=== PATIENT | male | born 1980 | race Hispanic/Latino ===

== ENCOUNTER 2024-12-14 00:35 | Emergency (ER) | payer OTHER ==
[~2024-12-14] VITALS: Ht 175.3 cm; Wt 129.3 kg
[~2024-12-14 00:35] MED LIST: ACET-2079 PO; DICL20GE TP; LIDO1ADH71 TP; MELO-108 PO; ORPH100 PO
[2024-12-14 00:37] VITALS: BP 149/82; PULSE 95; RESP 18; TEMP 99.1; O2SAT 98
--- NOTE | 2024-12-14 01:13 | ERN ---
ED Note History of Present Illness Stated Complaint: LEFT HAND LACERATION Chief Complaint: Laceration/Avulsion Time Seen by MD: 00:39 Dictation: PATIENT IS A 44-YEAR-OLD MALE WITH A LEFT PALMAR LACERATION WITH THE CUT ON A BROKEN GLASS AT HOME. HE STATES THE GLASS WAS GOING TO FALL ANY ATTEMPTED TO GRAB IT NOT REALIZED IN THE END OF IT WAS BROKEN. NO ACTIVE BLEEDING AT THE PRESENT TIME. PATIENT IS A DIABETIC. ADDITIONALLY STATES HIS TETANUS SHOT WAS WITHIN LAST FIVE YEARS. NEUROVASCULAR CMS INTACT. Allergies: Coded Allergies: No Known Drug Allergies (Unverified Allergy, Unknown, 03/21/24) Home Meds Active Scripts Acetaminophen with Codeine (Acetaminophen-Cod #3 Tablet) 300 Mg-30 Mg Tablet, 1 EACH PO QID for pain, #20 TAB Prov:VENICE DIAZ DO 03/21/24 Lidocaine (Lidocaine Pain Relief) 4 % Adh..patch, 1 EACH TP BID PRN for PAIN for 10 Days, #10 ADH.PATCH Prov:VENICE DIAZ DO 03/21/24 Diclofenac Sodium (Voltaren Arthritis Pain) 1 % Gel..gram., 20 GM TP QID, #1 TUBE Prov:VENICE DIAZ DO 03/21/24 Orphenadrine Citrate (Norflex) 100 Mg Srtab, 100 MG PO BID for back spasm, #20 TAB.SR Prov:VENICE DIAZ DO 03/21/24 Meloxicam (Meloxicam) 15 Mg Tablet, 15 MG PO DAILY PRN for PAIN for 10 Days, #10 TAB Prov:VENICE DIAZ DO 03/21/24 Past Medical History Past Medical History: Diabetes-Type II, Hypertension Surgical History: Other Surgical History Other: right 5th toe amputation RN Note Reviewed/Agreed w/PFSH: Yes Review of System Dictation CONSTITUTIONAL: NEGATIVE EXCEPT FOR HPI HEAD/FACE: NEGATIVE EXCEPT FOR HPI EENT: NEGATIVE EXCEPT FOR HPI RESPIRATORY: NEGATIVE EXCEPT FOR HPI GASTROINTESTINAL/ABDOMINAL: NEGATIVE EXCEPT FOR HPI GENITOURINARY: NEGATIVE EXCEPT FOR HPI MUSCULOSKELETAL: NEGATIVE EXCEPT FOR HPI INTEGUMENTARY: NEGATIVE EXCEPT FOR HPI LEFT PALMAR LACERATION NEUROLOGICAL/PSYCH: NEGATIVE EXCEPT FOR HPI HEMATOLOGIC/LYMPHATIC: NEGATIVE EXCEPT FOR HPI ALL SYSTEMS NEGATIVE, EXCEPT NOTED ABOVE. 13 POINT REVIEW OF SYSTEMS ASSESSED AND ALL NEGATIVE EXCEPT FOR ABOVE. Initial Vital Sign VS Vital Signs Date Time Temp Pulse Resp B/P (MAP) Pulse Ox O2 Delivery O2 Flow Rate FiO2 2/15/25 00:37 99.1 95 18 149/82 98 Room Air* 0 21 Physical Exam Dictation VITAL SIGNS REVIEWED GENERAL APPEARANCE: ALERT, ORIENTED X 3, MILD ACUTE DISTRESS, WELL DEVELOPED, NOURISHED. OBESE HEAD AND FACE: NON-TRAUMATIC. EYES: PERRL, PINK CONJUNCTIVAS, EYELID NO TRAUMA, ANTERIOR CHAMBER WITH ARCUS SENILIS. EARS: PINNAS INTACT AND NO SIGNS OF TRAUMA OR ERYTHEMA EAR CANALS CLEAR AND NO DISCHARGE TM NO ERYTHEMA NOSE: NO DISCHARGE, NO BLEEDING. OROPHARYNX: MOUTH NORMAL, TONGUE PINK, PHARYNX CLEAR,NO ERYTHEMA, TONSILS NO EXUDATES, NO ABSCESSES NOTED, MUCOUS MEMBRANE MOIST NECK: SUPPLE, NON-TENDER, NO THYROMEGALY, NO MASSES, NO JVD, NO BRUITS BREAST:DEFERRED CHEST:NO TENDERNESS, NO CREPITUS, NO PARADOXICAL MOVEMENT, NO RETRACTIONS LUNGS:CLEAR, WELL-VENTILATED, SYMMETRIC, NO RALES, NO WHEEZING, NO RHONCHI, NO STRIDOR, GOOD BREATH SOUNDS BILATERALLY HEART: REGULAR RATE, REGULAR RHYTHM, NO MURMUR, NO GALLOPS VASCULAR: NO PERIPHERAL EDEMA, ABDOMEN: SOFT, POSITIVE BOWEL SOUNDS, NONDISTENDED, NO GUARDING, NONTENDER, NO REBOUND, NO MASSES NO HEPATOMEGALY, NO SPLENOMEGALY, NO HOUSTON'S SIGN, NO HERNIAS. RECTAL: DEFERRED GENITAL: DEFERRED NEUROLOGICAL: NORMAL SPEECH, MOTOR FUNCTION INTACT, SENSORY FUNCTION INTACT MUSCULOSKELETAL: NECK NONTENDER, FULL RANGE OF MOTION, BACK NONTENDER, FULL RANGE OF MOTION, EXTREMITIES: NONTENDER, FULL RANGE OF MOTION SKIN: COLOR PINK, D 3 CM LACERATION TO PALMAR THENAR LEFT THUMB FULL RANGE OF MOTION TO THUMB NO LAXITY LYMPHATIC: DEFERRED Results (Laboratory/Radiology) Laboratory/Radiology 0115/LEFT HAND X-RAY DEMONSTRATES NO RADIOPAQUE FOREIGN BODY Labs Reviewed?: Yes ED Course ED Course Orders Procedure Category Date Status Time Hand 3+Vws Lt RAD 12/14/24 Taken 00:47 Ibuprofen 800 Mg Tab PHA 12/14/24 In Process (Motrin) 01:30 Cephalexin 500 Mg PHA 12/14/24 In Process Capsule (Keflex 500 Mg 01:30 Neomy PHA 12/14/24 In Process Sulf/Bacitra/Polymyxin 01:30 Lidocaine Hcl 1% 20ml PHA 12/14/24 In Process Vial (Lidocaine Hc 01:30 Current Medications Medications (Trade) Dose Ordered Sig/Patricia Route PRN Reason Start Time Stop Time Status Last Admin Dose Admin Cephalexin (Keflex 500 MG CAPS) 1,000 mg ONCE ONCE PO 12/14/24 01:30 12/14/24 01:31 Ibuprofen (moTRIN) 800 mg ONCE ONCE PO 12/14/24 01:30 12/14/24 01:31 Lidocaine HCl (Lidocaine HCl 1% 20ml Vial) 10 ml ONCE INJ 12/14/24 01:30 01/13/25 01:29 Neomycin/ Polymyxin/ Bacitracin (Triple Antibiotic Ointment) 1 appl ONCE ONCE TP 12/14/24 01:30 12/14/24 01:31 Vital Signs Date Time Temp Pulse Resp B/P (MAP) Pulse Ox O2 Delivery O2 Flow Rate FiO2 12/14/24 00:37 99.1 95 18 149/82 98 Room Air 0 12/14/24 00:37 99.1 95 18 149/82 98 Room Air* 0 21 0130/MEDICAL DECISION-MAKING BASED ON X-RAY TO RULE OUT RETAINED FOREIGN BODY AND WOUND CLOSURE. PATIENT STATES IT TETANUS SHOT IS UP TO DATE HE HAS A DIABETIC AND INITIATED KEFLEX PROPHYLACTICALLY Medical Decision Making MDM MEDICAL DECISION-MAKING BASED ON X-RAY TO RULE OUT FOREIGN BODY X-RAY NEGATIVE LACERATION WAS CLOSED KEFLEX INITIATED PROPHYLACTICALLY DUE TO PATIENT HAS A DIABETIC MALE WOUND CARE INSTRUCTIONS GIVEN Procedure Procedure Dictation: 0120/PROCEDURE EXPLAINED TO PATIENT HE AGREED TO PROCEED 3 CM LACERATION TO PALMAR THENAR LEFT THUMB CLEANED WITH WOUND CLEANSER 3 ML LIDOCAINE 1% PLAIN FOR LOCAL ANESTHETIC CLOSED WITH FOUR 4-0 PROLENE SIMPLE INTERRUPTED SUTURES SINGLE-LAYER CLOSURE PATIENT TOLERATED WELL NEUROVASCULAR CMS INTACT TO FINGER POST REPAIR DX & DISP Disposition: Discharge Departure Impression: Primary Impression: Laceration of superficial palmar arch of left hand Condition: Stable Scripts Cephalexin (Cephalexin) 500 Mg Tablet 1 TAB PO TID for 7 Days, #21 TAB 0 Refills Prov: MARLY JOHNSON NP 12/14/24 Mupirocin (Bactroban 2% Oint) 2 % Oint 1 APPL TP TID for 5 Days, #15 GM 0 Refills apply to affected area(s) Prov: MARLY JOHNSON TALENT ACQUISITION LEAD 12/14/24 Additional Instructions: FOLLOW-UP WITH PRIMARY CARE PROVIDER IN 1 TO 2 DAYS. TAKE MEDICATIONS DIRECTED HERE IN THE EMERGENCY ROOM. OKAY TO CONTINUE HOME MEDICATIONS UNLESS OTHERWISE DISCUSSED DURING YOUR VISIT IN THE EMERGENCY ROOM TODAY. RETURN TO YOUR NEAREST EMERGENCY ROOM IF SYMPTOMS WORSEN OR IF THERE IS NO IMPROVEMENT. CALL 911 IF YOU NEED IMMEDIATE ASSISTANCE. TAKE TYLENOL OR MOTRIN [id number] NEEDED AND IF NO CONTRAINDICATIONS ARE PRESENT. INCREASE ORAL HYDRATION. A WOUND CULTURE OR URINE CULTURE WAS ORDERED HERE IN THE EMERGENCY ROOM DEPARTMENT PLEASE FOLLOW-UP WITH PRIMARY CARE PROVIDER AND ADVISE THEM TO GET REPEAT PORTS FROM OUR FACILITY. IF YOU HAD ANY ARINA WRAP/SPLINTS THAT WERE APPLIED HERE, PLEASE DO NOT REMOVE THEM UNTIL YOU SEE YOUR PRIMARY CARE OR SPECIALTY. KEEP LACERATION REPAIR CLEAN AND DRY. APPLY BACTROBAN OINTMENT WITH DRESSING 3 TIMES A DAY FOR FIVE DAYS. TAKE ANTIBIOTICS DIRECTED UNTIL GONE. SUTURES OUT IN 10 DAYS Referrals: BRIGETTE PITT MD (PCP) Time of Disposition: 01:30 I have reviewed the case, and I agree with, Diagnosis and Plan MARLY JOHNSON NP Dec 14, 2024 01:13
[2024-12-14] MEDS: ibuPROFEN 800 MG TAB PO ONE (01:18)
[2024-12-14] MEDS: NEOMY SULF/BACITRA/POLYMYXIN B 1 EACH PACKET TP ONE (01:18)
[2024-12-14] MEDS: cePHALexin 500 MG CAPSULE PO ONE (01:18)
[2024-12-14] MEDS: LIDOCAINE HCL 1% 20 ML VIAL INJ SCH (01:21)
[2024-12-14] MEDS ORDERED: CEPH500T PO (01:31)
[2024-12-14] MEDS ORDERED: MUPI22O TP (01:31)
--- NOTE | 2024-12-14 01:50 | NUR ---
NEOSPORIN APPLIED TO LEFT LACERATION WOUND. NON-ADHERENT PAD AND KERLEX APPLIED TO SUTURED LEFT HAND.
--- NOTE | 2024-12-14 08:45 | HMCIMG ---
Exam Type: HAND 3+VWS LT Clinical Information: palm laceration with possible foreign body Comparison: None Findings: The bone examination is unremarkable. No fractures or dislocations are seen. No radiopaque foreign bodies are noted. Soft tissues are preserved. IMPRESSION: Normal examination.
== END 2024-12-14 01:53 | disposition home or self-care (01) ==
LOC: EDH 00:35
DX: S65.212A Laceration of superficial palmar arch of left hand, initial encounter (principal); E11.9 Type 2 diabetes mellitus without complications; I10 Essential (primary) hypertension; W25.XXXA Contact with sharp glass, initial encounter; Y93.89 Activity, other specified; Y92.89 Other specified places as the place of occurrence of the external cause; Y99.8 Other external cause status
CPT/HCPCS: 12002; 73130; 99284

== ENCOUNTER 2025-02-09 04:14 | Emergency (ER) | payer OTHER ==
[~2025-02-09] VITALS: Ht 175.3 cm; Wt 128.8 kg
[~2025-02-09 04:14] MED LIST changes: +CEPH500T PO; +MUPI22O TP
--- NOTE | 2025-02-09 04:34 | ERN ---
General Chief Complaint: Nosebleed Stated Complaint: NOSE BLEED Time Seen by MD: 04:27 Source: patient History of Present Illness Initial Comments 44-year-old male with a history of nosebleeds had one start tonight. He could not stop the bleeding despite pressure with his fingers on his nose. He could feel bleeding dribbling into the back of his throat during this time so he comes to the ED. the ED staff put a clamp on his nose and he feels like it is no longer bleeding and he no longer feels blood dripping down into the back of his throat. We removed the nasal clamp and the patient nose started bleeding again after [address] a rhino rocket. Allergies: Coded Allergies: No Known Drug Allergies (Unverified Allergy, Unknown, 03/21/24) Home Meds Active Scripts Cephalexin (Cephalexin) 500 Mg Tablet, 1 TAB PO TID for 7 Days, #21 TAB 0 Refills Prov:MARLY JOHNSON TYRE BUILDER 12/14/24 Mupirocin (Bactroban 2% Oint) 2 % Oint, 1 APPL TP TID for 5 Days, #15 GM 0 Refills apply to affected area(s) Prov:MARLY JOHNSON TYRE BUILDER 12/14/24 Acetaminophen with Codeine (Acetaminophen-Cod #3 Tablet) 300 Mg-30 Mg Tablet, 1 EACH PO QID for pain, #20 TAB Prov:VENICE DIAZ DO 03/21/24 Lidocaine (Lidocaine Pain Relief) 4 % Adh..patch, 1 EACH TP BID PRN for PAIN for 10 Days, #10 ADH.PATCH Prov:VENICE DIAZ DO 03/21/24 Diclofenac Sodium (Voltaren Arthritis Pain) 1 % Gel..gram., 20 GM TP QID, #1 TUBE Prov:VENICE DIAZ DO 03/21/24 Orphenadrine Citrate (Norflex) 100 Mg Srtab, 100 MG PO BID for back spasm, #20 TAB.SR Prov:VENICE DIAZ DO 03/21/24 Meloxicam (Meloxicam) 15 Mg Tablet, 15 MG PO DAILY PRN for PAIN for 10 Days, #10 TAB Prov:VENICE DIAZ DO 03/21/24 Past Medical History Past Medical History: Diabetes-Type II, Hypertension Past Surgical History: Other Surgical History Other: right 5th toe amputation ROS Dictation Review of systems is negative except for the nosebleed. Results Laboratory and Microbiology Labs Reviewed?: Yes MDM MDM: Differential diagnosis: Epistaxis, anterior epistaxis, posterior epistaxis, rhinorrhea, Rationale: Tests considered and ordered secondary to shared decision making include: Previous outside records reviewed: Old ER visits. Patient is a 44-year-old male coming in to be evaluated for left-sided epistaxis. Rhino rocket was placed epistaxis subsided. Before placed in the rhino rocket was covered in triple antibiotic cream Afrin was applied for smooth muscle dilation. Patient will be discharged in stable condition with a diagnosis of epistaxis. ED Course Orders Procedure Category Date Status Time Oxymetazolone Hcl PHA 02/09/25 Complete [place] (Afrin) 08:00 Neomy PHA 02/09/25 Complete Sulf/Bacitra/Polymyxin 08:00 Ketorolac PHA 02/09/25 Complete Tromethamine 30mg/Ml 08:34 Current Medications Medications (Trade) Dose Ordered Sig/Patricia Route PRN Reason Start Time Stop Time Status Last Admin Dose Admin Ketorolac Tromethamine (toRADol) 30 mg STK-MED ONCE .ROUTE 02/09/25 08:34 02/09/25 08:34 DC Neomycin/ Polymyxin/ Bacitracin (Triple Antibiotic Ointment) 1 appl ONCE ONCE TP 02/09/25 08:00 02/09/25 08:03 DC 02/09/25 08:31 Oxymetazoline HCl (AFrin) 2 sprays ONCE STAT EN 02/09/25 08:00 02/09/25 08:03 DC 02/09/25 08:31 Vital Signs Date Time Temp Pulse Resp B/P (MAP) Pulse Ox O2 Delivery O2 Flow Rate FiO2 02/09/25 04:49 97.9 88 18 142/79 97 Room Air* 0 21 02/09/25 04:15 97.2 88 16 154/86 98 Room Air Procedure Dictation Left nares epistaxis- using a 7.5 rhino rocket covered in triple antibiotic cream it was slowly introduce in the left [place] epistaxis subsided. Patient will be discharged in stable condition with a diagnosis epistaxis DX & DISP Disposition: Discharge Departure Impression: Primary Impression: Left-sided epistaxis Condition: Stable Additional Instructions: FOLLOW-UP WITH PRIMARY CARE PROVIDER IN 1 TO 2 DAYS. TAKE MEDICATIONS DIRECTED HERE IN THE EMERGENCY ROOM. OKAY TO CONTINUE HOME MEDICATIONS UNLESS OTHERWISE DISCUSSED DURING YOUR VISIT IN THE EMERGENCY ROOM TODAY. RETURN TO YOUR NEAREST EMERGENCY ROOM IF SYMPTOMS WORSEN OR IF THERE IS NO IMPROVEMENT. CALL 911 IF YOU NEED IMMEDIATE ASSISTANCE. TAKE TYLENOL [id number] NEEDED AND IF NO CONTRAINDICATIONS ARE PRESENT. INCREASE ORAL HYDRATION. A WOUND CULTURE OR URINE CULTURE WAS ORDERED HERE IN THE EMERGENCY ROOM DEPARTMENT PLEASE FOLLOW-UP WITH PRIMARY CARE PROVIDER AND ADVISE THEM TO GET REPEAT PORTS FROM OUR FACILITY. IF YOU HAD ANY ARINA WRAP/SPLINTS THAT WERE APPLIED HERE, PLEASE DO NOT REMOVE THEM UNTIL YOU SEE YOUR PRIMARY CARE OR SPECIALTY. Referrals: Referrals: BRIGETTE PITT MD (PCP) ROBBIE MOJICA MD Time of Disposition: 08:44 RUBIO ORTIZ MD Feb 09, 2025 04:34 EMIL COOMBS MD Feb 09, 2025 08:44
--- NOTE | 2025-02-09 05:14 | NUR ---
patient developed nosebleed again, ed md made aware
--- NOTE | 2025-02-09 05:18 | NUR ---
rapid rhino inserted to left nare as ordered
[2025-02-09 08:30] VITALS: BP 140/70; PULSE 80; RESP 16; TEMP 98.3; O2SAT 98
[2025-02-09] MEDS ORDERED: ketOROlac 30MG VIAL (30MG/ML) IM ONE (08:30)
[2025-02-09] MEDS: OXYmetazolone HCL SPRAY 15 ML BOTTLE EN STA (08:31)
[2025-02-09] MEDS: NEOMY SULF/BACITRA/POLYMYXIN B 1 EACH PACKET TP ONE (08:31)
[2025-02-09] MEDS: ketOROlac 30MG VIAL (30MG/ML) ONE (08:47)
== END 2025-02-09 09:03 | disposition home or self-care (01) ==
LOC: EDH 04:14
DX: R04.0 Epistaxis (principal); E11.9 Type 2 diabetes mellitus without complications; I10 Essential (primary) hypertension
CPT/HCPCS: 30901; 30905; 99284; J1885

== ENCOUNTER 2025-02-12 18:04 | Emergency (ER) | payer OTHER ==
[~2025-02-12] VITALS: Ht 175.3 cm; Wt 128.8 kg
--- NOTE | 2025-02-12 18:53 | NUR ---
CLIP APPLIED TO NOSE PER CLYDE HUTTON. PT TOLERATED WELL
[2025-02-12] MEDS: OXYmetazolone HCL SPRAY 15 ML BOTTLE EN ONE (19:35)
[2025-02-12 19:53] LABS: BASOPHILS # (AUTO) 0.04 K/uL (0.00-0.20); BASOPHILS % (AUTO) 0.3 % (0.0-5.0); EOSINOPHILS # (AUTO) 0.06 K/uL (0.00-0.70); EOSINOPHILS % (AUTO) 0.4 % (0.0-8.0); IMMATURE GRANULOCYTE ABSOLUTE 0.05 K/uL (0-1); LYMPHOCYTES # (AUTO) 1.9 K/uL (1.0-4.8); LYMPHOCYTES % (AUTO) 13.5 % (21.0-51.0); MEAN CORPUSCULAR HEMOGLOBIN 27.2 pg (27.0-33.0); MEAN CORPUSCULAR HGB CONC 32.6 g/dL (32.0-36.0); MEAN CORPUSCULAR VOLUME 83.5 fL (79-99); NEUTROPHILS # (AUTO) 10.8 K/uL (1.8-7.7); NEUTROPHILS % (AUTO) 78.4 % (40.0-77.0); PLATELET COUNT (AUTO) 216 K/uL (130-400); RED BLOOD CELL COUNT(AUTO) 4.67 MIL/uL (4.50-6.20); RED CELL DISTRIBUTION WIDTH 14.2 % (11.0-15.5); WHITE BLOOD COUNT (AUTO) 13.8 K/uL (4.8-10.8)
[2025-02-12 20:02] LABS: PROTHROMBIN TIME 10.6 SEC (9.6-11.6)
--- NOTE | 2025-02-12 21:24 | ERN ---
ED Note History of Present Illness Stated Complaint: RHINO ROCKET REMOVED Chief Complaint: Other Problems Time Seen by MD: 18:08 Time Seen by Midlevel: 18:08 Dictation: The patient is a 44-year-old male with history of hypertension, diabetes who presents to the emergency department for evaluation of rhino rocket removal. Patient reports he started with nosebleeds on Monday and had a rhino rocket inserted Monday morning and is here to remove it. Patient denies any complications with a rhino rocket. Denies any posterior blood. Allergies: Coded Allergies: No Known Drug Allergies (Unverified Allergy, Unknown, 03/21/24) Home Meds Active Scripts Cephalexin (Cephalexin) 500 Mg Tablet, 1 TAB PO TID for 7 Days, #21 TAB 0 Refills Prov:MARLY JOHNSON ADVISOR CONSULTANT 12/14/24 Mupirocin (Bactroban 2% Oint) 2 % Oint, 1 APPL TP TID for 5 Days, #15 GM 0 Refills apply to affected area(s) Prov:MARLY JOHNSON NP 12/14/24 Acetaminophen with Codeine (Acetaminophen-Cod #3 Tablet) 300 Mg-30 Mg Tablet, 1 EACH PO QID for pain, #20 TAB Prov:VENICE DIAZ DO 03/21/24 Lidocaine (Lidocaine Pain Relief) 4 % Adh..patch, 1 EACH TP BID PRN for PAIN for 10 Days, #10 ADH.PATCH Prov:VENICE IDAZ DO 03/21/24 Diclofenac Sodium (Voltaren Arthritis Pain) 1 % Gel..gram., 20 GM TP QID, #1 T UBE Prov:VENICE DIAZ DO 03/21/24 Orphenadrine Citrate (Norflex) 100 Mg Srtab, 100 MG PO BID for back spasm, #20 TAB.SR Prov:VENICE DIAZ DO 03/21/24 Meloxicam (Meloxicam) 15 Mg Tablet, 15 MG PO DAILY PRN for PAIN for 10 Days, #10 TAB Prov:VENICE DIAZ DO 03/21/24 Past Medical History Past Medical History: Diabetes-Type II, Hypertension Surgical History: Other Surgical History Other: right 5th toe amputation RN Note Reviewed/Agreed w/PFSH: Yes Review of System Dictation Constitutional: Negative for fever,chills, and weight loss Eyes: Negative for injury, pain,redness, and discharge ENT: Negative for injury,pain or swelling positive for nosebleed Cardiovascular: Negative for chest pain, palpitations, and edema Respiratory: Negative for shortness of breath, cough, and wheezing, Abdomen/GI: Negative for abdominal pain, nausea, vomiting, diarrhea, and constipation Back: Negative for injury and pain : Negative for injury, bleeding and discharge MS/Extremity: Negative for injury and deformity Skin: Negative for rash, and discoloration Neuro: Negative for headache, weakness, numbness, tingling, and seizure Psych: Negative for suicide ideation, homicidal ideation, and hallucinations Initial Vital Sign VS Vital Signs Date Time Temp Pulse Resp B/P (MAP) Pulse Ox O2 Delivery O2 Flow Rate FiO2 02/12/25 18:07 98.1 95 20 136/86 99 Room Air 02/12/25 18:25 0 21 Physical Exam Dictation Vital Signs reviewed General Appearance: Alert, oriented x 3, no acute distress, well developed, nourished. Head and Face: non-traumatic. Eyes: PERRL, pink conjunctivas, eyelid no trauma, anterior chamber with arcus senilis. Ears: Pinnas intact and no signs of trauma or erythema ear canals clear and no discharge TM no erythema Nose: No discharge, scant left nostril bleeding, no obvious wounds Oropharynx: Mouth normal, tongue pink. pharynx clear,no erythema, tonsils no exudates, no abscesses noted, mucous membrane moist Neck: Supple, non-tender, no thyromegaly, no masses, no JVD, no bruits Breast:Deferred Chest:No tenderness, no crepitus, no paradoxical movement, no retractions Lungs:Clear, well-ventilated, symmetric, no rales, no wheezing, no rhonchi, no stridor, good breath sounds bilaterally Heart: Regular rate, regular rhythm, no murmur, no gallops Vascular: no peripheral edema, Abdomen: Soft, positive bowel sounds, nondistended, no guarding, nontender, no rebound, no masses no hepatomegaly, no splenomegaly, no Schmitz's sign, no hernias. Rectal: Deferred Genital: Deferred Neurological: Normal speech, motor function intact, sensory function intact Musculoskeletal: Neck nontender, full range of motion, back nontender, full range of motion, Extremities: nontender, full range of motion Skin: Color pink, dry, no turgor, no rash, no lacerations, no abrasions, no contusions. Lymphatic: Deferred Results (Laboratory/Radiology) Laboratory/Radiology Laboratory Tests Test 02/12/25 19:45 White Blood Count 13.8 K/uL (4.8-10.8) H Red Blood Count 4.67 MIL/uL (4.50-6.20) Hemoglobin 12.7 g/dL (14.0-18.0) L Hematocrit 39.0 % (42-54) L Mean Corpuscular Volume 83.5 fL (79-99) Mean Corpuscular Hemoglobin 27.2 pg (27.0-33.0) Mean Corpuscular Hemoglobin Concent 32.6 g/dL (32.0-36.0) Red Cell Distribution Width 14.2 % (11.0-15.5) Platelet Count 216 K/uL (130-400) Mean Platelet Volume 10.7 fL (7.5-10.5) H Immature Granulocyte % (Auto) 0.4 % (0-1) Neutrophils (%) (Auto) 78.4 % (40.0-77.0) H Lymphocytes (%) (Auto) 13.5 % (21.0-51.0) L Monocytes (%) (Auto) 7.0 % (3.0-13.0) Eosinophils (%) (Auto) 0.4 % (0.0-8.0) Basophils (%) (Auto) 0.3 % (0.0-5.0) Neutrophils # (Auto) 10.8 K/uL (1.8-7.7) H Lymphocytes # (Auto) 1.9 K/uL (1.0-4.8) Monocytes # (Auto) 1.0 K/uL (0.1-1.0) Eosinophils # (Auto) 0.06 K/uL (0.00-0.70) Basophils # (Auto) 0.04 K/uL (0.00-0.20) Absolute Immature Granulocyte (auto 0.05 K/uL (0-1) Nucleated Red Blood Cells 0.0 % (0.0-0.19) Prothrombin Time 10.6 SEC (9.6-11.6) Prothromb Time International Ratio 1.00 (0.85-1.15) Activated Partial Thromboplast Time 29.0 SEC (26.3-35.5) Labs Reviewed?: Yes ED Course ED Course Orders Procedure Category Date Status Time Oxymetazolone Hcl PHA 02/12/25 Complete [place] (Afrin) 19:30 Cbc With Differential LAB 02/12/25 Complete 18:49 Pt And Ptt LAB 02/12/25 Complete 18:49 Current Medications Medications (Trade) Dose Ordered Sig/Patricia Route PRN Reason Start Time Stop Time Status Last Admin Dose Admin Oxymetazoline HCl (AFrin) 2 SPRAYS EN ONCE ONCE EN 02/12/25 19:30 02/12/25 19:31 DC 02/12/25 19:35 Vital Signs Date Time Temp Pulse Resp B/P (MAP) Pulse Ox O2 Delivery O2 Flow Rate FiO2 02/12/25 18:25 98.1 95 20 136/86 99 Room Air* 0 21 02/12/25 18:07 98.1 95 20 136/86 99 Room Air Medical Decision Making MDM The patient is a 44-year-old male with history of hypertension, diabetes who presents to the emergency department for evaluation of rhino rocket removal. Patient reports he started with nosebleeds on Monday and had a rhino rocket inserted Monday morning and is here to remove it. Patient denies any complications with a rhino rocket. Denies any posterior blood. CBC showed mild leukocytosis, mild normocytic anemia, normal platelets, normal coagulation. Patient's rhino rocket was removed and patient developed nosebleed again. Afrin was applied and pressure was applied which helped significantly. Patient's bleeding appears to be anteriorly. Patient with no posterior blood. Patient was observed in the ER for a few hours with minimal bleeding. Patient instructed to follow up with ENT and PCP. Differential diagnosis: Posterior nosebleed, anterior nosebleed, thrombocytopenia Need for hospitalization: Patient does not meet criteria for hospitalization. There are no social concerns with this patient. DX & DISP Disposition: Discharge Departure Impression: Primary Impression: Left-sided epistaxis Condition: Stable Additional Instructions: Please follow up with ENT in 1-2 days. If bleeding develops please apply pressure until it stops. If bleeding becomes in your please return to ER. FOLLOW-UP WITH PRIMARY CARE PROVIDER IN 1 TO 2 DAYS. TAKE MEDICATIONS DIRECTED HERE IN THE EMERGENCY ROOM. OKAY TO CONTINUE HOME MEDICATIONS UNLESS OTHERWISE DISCUSSED DURING YOUR VISIT IN THE EMERGENCY ROOM TODAY. RETURN TO YOUR NEAREST EMERGENCY ROOM IF SYMPTOMS WORSEN OR IF THERE IS NO IMPROVEMENT. CALL 911 IF YOU NEED IMMEDIATE ASSISTANCE. TAKE TYLENOL OR MOTRIN [id number] NEEDED AND IF NO CONTRAINDICATIONS ARE PRESENT. INCREASE ORAL HYDRATION. A WOUND CULTURE OR URINE CULTURE WAS ORDERED HERE IN THE EMERGENCY ROOM DEPARTMENT PLEASE FOLLOW-UP WITH PRIMARY CARE PROVIDER AND ADVISE THEM TO GET REPEAT PORTS FROM OUR FACILITY. IF YOU HAD ANY ARINA WRAP/SPLINTS THAT WERE APPLIED HERE, PLEASE DO NOT REMOVE THEM UNTIL YOU SEE YOUR PRIMARY CARE OR SPECIALTY. Referrals: ALLAN LEE MD (PCP) Time of Disposition: 21:23 I have reviewed the case, and I agree with, Diagnosis and Plan ANNI MOSES DECORATIVE CUTTING MACHINE TENDER Feb 12, 2025 21:24
[2025-02-12 21:48] VITALS: BP 128/80; PULSE 88; RESP 20; TEMP 98.1; O2SAT 99
== END 2025-02-12 21:49 | disposition home or self-care (01) ==
LOC: EDH 18:04
DX: R04.0 Epistaxis (principal); E11.9 Type 2 diabetes mellitus without complications; I10 Essential (primary) hypertension; Z79.899 Other long term (current) drug therapy; Z98.890 Other specified postprocedural states
CPT/HCPCS: 36415; 85025; 85610; 85730; 99283

== ENCOUNTER 2025-02-17 02:04 | Emergency (ER) | payer OTHER ==
[~2025-02-17] VITALS: Ht 175.3 cm; Wt 130.2 kg
--- NOTE | 2025-02-17 03:04 | NUR ---
PT CARE ASSUMED AT THIS TIME. PT PLACED IN ED 9.
[2025-02-17] MEDS ORDERED: METH8TAB6 PO (05:37)
--- NOTE | 2025-02-17 05:38 | ERN ---
General Chief Complaint: Back Pain-No Injury Stated Complaint: BACK RADIATING TO RT LEG Time Seen by MD: 04:22 Source: patient History of Present Illness Initial Comments Patient is a 44-year-old male with low back pain that radiates to the front causing leg pain on the right. Allergies: Coded Allergies: No Known Drug Allergies (Unverified Allergy, Unknown, 03/21/24) Home Meds Active Scripts Cephalexin (Cephalexin) 500 Mg Tablet, 1 TAB PO TID for 7 Days, #21 TAB 0 Refills Prov:MARLY JOHNSON FURNACE UTILITY OPERATOR 12/14/24 Mupirocin (Bactroban 2% Oint) 2 % Oint, 1 APPL TP TID for 5 Days, #15 GM 0 Refills apply to affected area(s) Prov:MARLY JOHNSON NP 12/14/24 Acetaminophen with Codeine (Acetaminophen-Cod #3 Tablet) 300 Mg-30 Mg Tablet, 1 EACH PO QID for pain, #20 TAB Prov:VENICE DIAZ DO 03/21/24 Lidocaine (Lidocaine Pain Relief) 4 % Adh..patch, 1 EACH TP BID PRN for PAIN for 10 Days, #10 ADH.PATCH Prov:VENICE DIAZ DO 03/21/24 Diclofenac Sodium (Voltaren Arthritis Pain) 1 % Gel..gram., 20 GM TP QID, #1 TUB E Prov:VENICE DIAZ DO 03/21/24 Orphenadrine Citrate (Norflex) 100 Mg Srtab, 100 MG PO BID for back spasm, #20 TAB.SR Prov:VENICE DIAZ DO 03/21/24 Meloxicam (Meloxicam) 15 Mg Tablet, 15 MG PO DAILY PRN for PAIN for 10 Days, #10 TAB Prov:VENICE DIAZ DO 03/21/24 Past Medical History Past Medical History: Diabetes-Type II, Hypertension Past Surgical History: Other Surgical History Other: right 5th toe amputation Constitutional: (-) chills, (-) diaphoresis, (-) fever, (-) malaise, (-) wea kness, (-) other documentation EENTM: (-) eye pain, (-) blurred vision, (-) tearing, (-) double vision, (-) ear pain, (-) ear discharge, (-) nose pain, (-) nose congestion, (-) throat pain, (-) Throat swelling, (-) mouth pain, (-) tooth pain, (-) mouth swelling, (-) other documentation Respiratory: (-) cough, (-) orthopnea, (-) short of breath, (-) stridor, (-) wheezing, (-) other documentation Cardiovascular: (-) chest pain, (-) edema, (-) palpitations, (-) syncope, (-) dyspnea on exertion, (-) other documentation Gastrointestinal/Abdominal: (-) nausea, (-) vomiting, (-) diarrhea, (-) abdominal pain, (-) abdominal distention, (-) constipation, (-) rectal bleeding, (-) dark stool/melena, (-) other documentation Skin: (-) laceration, (-) contusion, (-) abrasion, (-) abscess, (-) rash, (-) change in color, (-) change in hair, (-) change in nails, (-) diaphoresis, (-) dryness, (-) other documentation Neuro: (-) altered mental status, (-) headache, (-) syncope, (-) paralysis, (-) numbness, (-) seizure, (-) pre-existing deficit, (-) tremors, (-) weakness, (-) dizziness, (-) slurred speech, (-) vertigo, (-) other documentation Physical Exam General Appearance: (+) no apparent distress Head/Face Trauma: No Eye: bilateral eye normal inspection, bilateral eye PERRL, bilateral eye EOMI Ear, Nose, Throat: (+) hearing grossly normal, (+) normal ENT inspection Neck: (+) normal inspection, (+) supple Respiratory: (+) chest non-tender, (+) lungs clear Heart: (+) regular, (+) no gallop Vascular: (+) no edema, (+) normal peripheral pulse Gastrointestinal: (+) soft, (+) non-tender, (+) no organomegaly MDM I ordered a CT scan of the patient's lumbar spine it shows degenerative disc disease and facet joint arthropathy with multiple high-grade lumbar spinal steno sis and severe lumbar foraminal stenosis bilaterally. I discussed these findings with the patient and he said that he has been here before and was given a shot in the back and was on his way. I do not know where to inject or how to inject steroids into people's backs just yet. I will give him a prescription for steroids and discharge him home. He is agreeable to this plan. ED Course Orders Procedure Category Date Status Time Ct Lumbar Spine W/O CT 02/17/25 Taken Contrast 04:22 Vital Signs Date Time Temp Pulse Resp B/P (MAP) Pulse Ox O2 Delivery O2 Flow Rate FiO2 02/17/25 04:48 70 17 136/76 100 Room Air* 0 21 02/17/25 03:08 98.1 73 17 132/76 100 Room Air* 0 21 02/17/25 02:06 98.1 79 20 147/87 99 Room Air DX & DISP Disposition: Discharge Departure Impression: Primary Impression: Acute exacerbation of chronic low back pain Condition: Stable Scripts Methylprednisolone (Methylprednisolone) 8 Mg Tablet 1 TAB PO DAILY for 5 Days, #20 TAB 0 Refills Prov: RUBIO ORTIZ MD 02/17/25 Additional Instructions: Please return if your symptoms are so bad that you lose bowel or urine function or you find you are unable to walk. Referrals: ALLAN LEE MD (PCP) RUBIO ORTIZ MD Feb 17, 2025 05:37
[2025-02-17 05:50] VITALS: BP 136/75; PULSE 75; RESP 15; TEMP 98.1; O2SAT 100
--- NOTE | 2025-02-17 08:46 | HMCIMG ---
CT LUMBAR SPINE W/O CONTRAST HISTORY: Radiculopathy, low back pain COMPARISON: None TECHNIQUE: Multiple sequential axial images of the lumbar spine were obtained including post processing sagittal and coronal reconstruction images. Patient was not given contrast through intravenous route. FINDINGS: There are degenerative changes with lumbar spine spondylosis. Disc space narrowing are seen at L2-3 through L5-S1 levels. Central canal narrowing is seen at these levels. There is no loss of vertebral height. Evaluation for disc and cord pathology is limited with CT study. No evidence of fracture or dislocation is seen. IMPRESSION: 1. No fracture is seen. DJD with lumbar spine spondylosis. CT was performed with one or more following dose reduction techniques: automated exposure control, adjustment of the mA and kv according to patient's size, or use of a iterative reconstruction technique.
== END 2025-02-17 06:04 | disposition home or self-care (01) ==
LOC: EDH 02:04
DX: G89.29 Other chronic pain (principal); M54.50 Low back pain, unspecified; E11.9 Type 2 diabetes mellitus without complications; I10 Essential (primary) hypertension; Z79.899 Other long term (current) drug therapy; Z98.890 Other specified postprocedural states
CPT/HCPCS: 72131; 99284

== ENCOUNTER 2025-02-20 14:00 | Emergency (ER) | payer OTHER ==
[~2025-02-20] VITALS: Ht 175.3 cm; Wt 128.8 kg
[~2025-02-20 14:00] MED LIST changes: +METH8TAB6 PO
--- NOTE | 2025-02-20 14:25 | ERN ---
General Chief Complaint: Lower Extremity Pain/Injury Stated Complaint: RIGHT LEG PAIN Time Seen by MD: 14:02 Source: patient History of Present Illness Initial Comments Patient is a 44-year-old male coming in to be evaluated for right hip pain radiating down the leg. Patient states that he was told that he had some nerve damage on a previous visit. He states that the pain is usually more intense and today is not as painful as it usually is. Allergies: Coded Allergies: No Known Drug Allergies (Unverified Allergy, Unknown, 03/21/24) Home Meds Active Scripts Methylprednisolone (Methylprednisolone) 8 Mg Tablet, 1 TAB PO DAILY for 5 Days, #20 TAB 0 Refills Prov:RUBIO ORTIZ MD 02/17/25 Cephalexin (Cephalexin) 500 Mg Tablet, 1 TAB PO TID for 7 Days, #21 TAB 0 Refills Prov:MARLY JOHNSON NP 12/14/24 Mupirocin (Bactroban 2% Oint) 2 % Oint, 1 APPL TP TID for 5 Days, #15 GM 0 Refills apply to affected area(s) Prov:MARLY JOHNSON NP 12/14/24 Acetaminophen with Codeine (Acetaminophen-Cod #3 Tablet) 300 Mg-30 Mg Tablet, 1 EACH PO QID for pain, #20 TAB Prov:VENICE DIAZ DO 03/21/24 Lidocaine (Lidocaine Pain Relief) 4 % Adh..patch, 1 EACH TP BID PRN for PAIN for 10 Days, #10 ADH.PATCH Prov:VENICE DIAZ DO 03/21/24 Diclofenac Sodium (Voltaren Arthritis Pain) 1 % Gel..gram., 20 GM TP QID, #1 TUBE Prov:VENICE DIAZ DO 03/21/24 Orphenadrine Citrate (Norflex) 100 Mg Srtab, 100 MG PO BID for back spasm, #20 TAB.SR Prov:VENICE DIAZ DO 03/21/24 Meloxicam (Meloxicam) 15 Mg Tablet, 15 MG PO DAILY PRN for PAIN for 10 Days, #10 TAB Prov:VENICE DIAZ DO 03/21/24 Past Medical History Past Medical History: Diabetes-Type II, Hypertension Past Surgical History: Other Surgical History Other: right 5th toe amputation ROS Dictation CONSTITUTIONAL: No chills, no fever, no weakness, no diaphoresis, no malaise. HEAD/FACE: No signs of trauma. EENT: No eye pain, no blurred vision, no tearing, no double vision, no ear pain, no ear discharge, no nose pain, no nasal congestion, no throat pain, no throat swelling, no mouth pain. RESPIRATORY: No cough, no orthopnea, no SOB, no stridor, no wheezing. CARDIOVASCULAR: No chest pain, no edema, no palpitations, no syncope. GASTROINTESTINAL/ABDOMINAL: No abdominal pain, no constipation, no diarrhea, no nausea, no vomiting. GENITOURINARY: No abnormal discharge, no dysuria, no frequent urination, no hematuria. No complaints of pain in the genitals. MUSCULOSKELETAL: No back pain, no gout, no joint pain, no joint swelling,muscle pain, no muscle stiffness, no neck pain. INTEGUMENTARY: No change in color, no change in hair/nails, no dryness, no lesi on, no lumps, no rash. NEUROLOGICAL/PSYCH: No anxiety, not depressed, no emotional problem, no headache, no numbness, no pre-existing deficit, no history of seizures, no tremors, no weakness. HEMATOLOGIC/LYMPHATIC: Not anemic, no history of blood clots, no apparent bleeding, no bruising, glands not swollen. All Systems Negative, Except as Noted. Physical Exam Physical Exam Dictation VITAL SIGNS: Reviewed. GENERAL APPEARANCE: Alert, oriented x3, no acute distress, obese. HEAD AND FACE: Non-traumatic. EYES: PERRL, pink conjunctivas, eyelid no trauma, anterior chamber clear. EARS: Pinnas intact and no signs of trauma or erythema. Ear canals clear and no discharge. TMs no erythema. NOSE: No discharge, no bleeding. OROPHARYNX: Mouth normal, teeth no caries, tongue pink. Pharynx clear, no erythema. Tonsils no exudates, no abscesses noted. Mucous membrane moist. NECK: Supple, non-tender, no thyromegaly, no masses, no JVD, no bruits. BREAST: Deferred. CHEST: No tenderness, no crepitus, no paradoxical movement, no retractions. LUNGS: Clear, well-ventilated, symmetric, no rales, no wheezing, no rhonchi, no stridor, good breath sounds bilaterally. HEART: Regular rate, regular rhythm, no murmur, no gallops. VASCULAR: No peripheral edema. ABDOMEN: Soft, positive bowel sounds, nondistended, no guarding, nontender, no rebound, no masses no hepatomegaly, no splenomegaly, no Schmitz's sign, no hernias. RECTAL: Deferred. GENITAL: Deferred. NEUROLOGICAL: Normal speech, gross motor function intact, gross sensory function intact. MUSCULOSKELETAL: Neck nontender, full range of motion, back nontender, full range of motion. EXTREMITIES: Nontender, full range of motion. Right lower extremity pain on movement right piriformis muscle tenderness. SKIN: Color pink, dry, no turgor, no rash, no lacerations, no abrasions, no contusions. LYMPHATICS: Deferred. MDM MDM: Differential diagnosis: Muscle strain, sciatica, nerve inflammation, tendinitis, Rationale: Tests considered and ordered secondary to shared decision making include: Previous outside records reviewed: Old ER visits. Risk of complication and/or morbidity or mortality of patient management: None Patient is a 44-year-old male coming in to be evaluated for right lower extremity pain. Patient states that he this is more of a chronic issue has been evaluated in the past and was told that there was some nerve damage. Patient is able to ambulate able to flex and extend the right lower extremity there is tenderness in the right piriformis muscle suggestive of CS sciatica. Patient will be discharged in stable condition with diagnosis right-sided sciatica. ED Course Orders Procedure Category Date Status Time Orphenadrine Citrate PHA 02/20/25 Complete (Norflex) 14:30 Triamcinolone Acet PHA 02/20/25 Complete 40mg/Ml 1ml (Kenalog 14:30 Current Medications Medications (Trade) Dose Ordered Sig/Patricia Route PRN Reason Start Time Stop Time Status Last Admin Dose Admin Orphenadrine Citrate (Norflex) 60 mg ONCE ONCE IM 02/20/25 14:30 02/20/25 14:31 DC Triamcinolone Acetonide (Kenalog 40) 40 mg ONCE ONCE IM 02/20/25 14:30 02/20/25 14:31 DC Vital Signs Date Time Temp Pulse Resp B/P (MAP) Pulse Ox O2 Delivery O2 Flow Rate FiO2 02/20/25 14:35 98.1 80 20 132/68 98 DX & DISP Disposition: Discharge Departure Impression: Primary Impression: Right sided sciatica Condition: Stable Scripts Naproxen (Naproxen) 500 Mg Tablet 1 TAB PO BID for pain for 7 Days, #14 TAB 0 Refills Prov: EMIL COOMBS MD 02/20/25 Methocarbamol (Robaxin) 750 Mg Tab 1 TAB PO BID for 7 Days, #14 TAB 0 Refills Prov: EMIL COOMBS MD 02/20/25 Additional Instructions: FOLLOW-UP WITH PRIMARY CARE PROVIDER IN 1 TO 2 DAYS. TAKE MEDICATIONS DIRECTED HERE IN THE EMERGENCY ROOM. OKAY TO CONTINUE HOME MEDICATIONS UNLESS OTHERWISE DISCUSSED DURING YOUR VISIT IN THE EMERGENCY ROOM TODAY. RETURN TO YOUR NEAREST EMERGENCY ROOM IF SYMPTOMS WORSEN OR IF THERE IS NO IMPROVEMENT. CALL 911 IF YOU NEED IMMEDIATE ASSISTANCE. TAKE TYLENOL [id number] NEEDED AND IF NO CONTRAINDICATIONS ARE PRESENT. INCREASE ORAL HYDRATION. A WOUND CULTURE OR URINE CULTURE WAS ORDERED HERE IN THE EMERGENCY ROOM DEPARTMENT PLEASE FOLLOW-UP WITH PRIMARY CARE PROVIDER AND ADVISE THEM TO GET REPEAT PORTS FROM OUR FACILITY. IF YOU HAD ANY ARINA WRAP/SPLINTS THAT WERE APPLIED HERE, PLEASE DO NOT REMOVE THEM UNTIL YOU SEE YOUR PRIMARY CARE OR SPECIALTY. REFERRALS: Referrals: ALLAN LEE MD (PCP) Time of Disposition: 15:14 EMIL COOMBS MD Feb 20, 2025 14:25
[2025-02-20 14:35] VITALS: BP 132/68; PULSE 80; RESP 20; TEMP 98
[2025-02-20] MEDS ORDERED: METH-662 PO (15:15)
[2025-02-20] MEDS ORDERED: NAPR-1194 PO (15:15)
[2025-02-20] MEDS: TRIAMCINOLONE ACETONIDE 40 MG/ML 1ML VIAL IM ONE (15:40)
[2025-02-20] MEDS: ORPHENADRINE 60MG/2ML IM ONE (15:40)
[2025-02-20] MEDS ORDERED: CYCLOBENZAPRINE HCL 10 MG TABLET PO ONE (20:30)
[2025-02-20] MEDS ORDERED: HYDROcodone/APAP 5/325 1 TAB TABLET PO ONE (20:30)
[2025-02-20] MEDS ORDERED: dexaMETHasone SOD PHOSPHATE 4 MG/ML 1ML VIAL IM ONE (20:30)
[2025-02-20] MEDS ORDERED: ketOROlac 60 MG VIAL (30MG/ML) IM ONE (20:30)
== END 2025-02-20 16:43 | disposition home or self-care (01) ==
LOC: EDH 14:00
DX: M54.31 Sciatica, right side (principal); E11.9 Type 2 diabetes mellitus without complications; I10 Essential (primary) hypertension; Z79.52 Long term (current) use of systemic steroids; Z79.899 Other long term (current) drug therapy; Z98.890 Other specified postprocedural states
CPT/HCPCS: 99284; 96372 ×2; J3301; J2360

== ENCOUNTER 2025-02-20 20:14 | Emergency (ER) | payer OTHER ==
[~2025-02-20] VITALS: Ht 175.3 cm; Wt 133.8 kg
[~2025-02-20 20:14] MED LIST changes: +METH-662 PO; +NAPR-1194 PO
--- NOTE | 2025-02-20 20:33 | ERN ---
ED Note History of Present Illness Stated Complaint: BACK PAIN Chief Complaint: Back Pain or Injury Time Seen by MD: 20:21 Dictation: PATIENT IS A 44-YEAR-OLD MALE WELL KNOWN TO [facility] WITH COMPLAINTS OF LOW BACK PAIN WITH RIGHT LEG IT SCIATICA. HE HAS HAD THIS OFF AND ON FOR QUITE A WHILE, WAS SEEN AT THE EMERGENCY ROOM TODAY WITHOUT ANY RECENT HISTORY OF TRAUMA. HE WAS TREATED THIS AFTERNOON AND SENT HOME OUT OF PAIN, DID NOT FILL HIS PRESCRIPTIONS FOR METHOCARBAMOL AND NAPROXEN PRESCRIBED. MOTHER STATES SHE WAS SCHEDULED TO PICK IT UP AT 2100 HOURS TONIGHT. PATIENT STATES HE HAS AN APPOINTMENT WITH HIS PRIMARY CARE DOCTOR NEXT MONDAY. NO CHANGE IN BOWEL OR BLADDER FUNCTION. Allergies: Coded Allergies: No Known Drug Allergies (Unverified Allergy, Unknown, 03/21/24) Home Meds Active Scripts Naproxen (Naproxen) 500 Mg Tablet, 1 TAB PO BID for pain for 7 Days, #14 TAB 0 Refills Prov:EMIL COOMBS MD 02/20/25 Methocarbamol (Robaxin) 750 Mg Tab, 1 TAB PO BID for 7 Days, #14 TAB 0 Refills Prov:EMIL COOMBS MD 02/20/25 Methylprednisolone (Methylprednisolone) 8 Mg Tablet, 1 TAB PO DAILY for 5 Days, #20 TAB 0 Refills Prov:RUBIO ORTIZ MD 02/17/25 Cephalexin (Cephalexin) 500 Mg Tablet, 1 TAB PO TID for 7 Days, #21 TAB 0 Refills Prov:MARLY JOHNSON NP 12/14/24 Mupirocin (Bactroban 2% Oint) 2 % Oint, 1 APPL TP TID for 5 Days, #15 GM 0 Refills apply to affected area(s) Prov:MARLY JOHNSON NP 12/14/24 Acetaminophen with Codeine (Acetaminophen-Cod #3 Tablet) 300 Mg-30 Mg Tablet, 1 EACH PO QID for pain, #20 TAB Prov:VENICE DIAZ DO 03/21/24 Lidocaine (Lidocaine Pain Relief) 4 % Adh..patch, 1 EACH TP BID PRN for PAIN for 10 Days, #10 ADH.PATCH Prov:VENICE DIAZ DO 03/21/24 Diclofenac Sodium (Voltaren Arthritis Pain) 1 % Gel..gram., 20 GM TP QID, #1 TUBE Prov:VENICE DIAZ DO 03/21/24 Orphenadrine Citrate (Norflex) 100 Mg Srtab, 100 MG PO BID for back spasm, #20 TAB.SR Prov:VENICE DIAZ DO 03/21/24 Meloxicam (Meloxicam) 15 Mg Tablet, 15 MG PO DAILY PRN for PAIN for 10 Days, #10 TAB Prov:VENICE DIAZ DO 03/21/24 Past Medical History Past Medical History: Diabetes-Type II, Hypertension, Other (CHRONIC LUMBAR PAIN WITH RIGHT-SIDED SCIATICA) Surgical History: Other Surgical History Other: right 5th toe amputation RN Note Reviewed/Agreed w/PFSH: Yes Review of System Dictation CONSTITUTIONAL: NEGATIVE EXCEPT FOR HPI HEAD/FACE: NEGATIVE EXCEPT FOR HPI EENT: NEGATIVE EXCEPT FOR HPI RESPIRATORY: NEGATIVE EXCEPT FOR HPI GASTROINTESTINAL/ABDOMINAL: NEGATIVE EXCEPT FOR HPI GENITOURINARY: NEGATIVE EXCEPT FOR HPI MUSCULOSKELETAL: NEGATIVE EXCEPT FOR HPI LUMBAR PAIN WITH RIGHT SCIATICA INTEGUMENTARY: NEGATIVE EXCEPT FOR HPI NEUROLOGICAL/PSYCH: NEGATIVE EXCEPT FOR HPI HEMATOLOGIC/LYMPHATIC: NEGATIVE EXCEPT FOR HPI ALL SYSTEMS NEGATIVE, EXCEPT NOTED ABOVE. 13 POINT REVIEW OF SYSTEMS ASSESSED AND ALL NEGATIVE EXCEPT FOR ABOVE. Initial Vital Sign VS Vital Signs Date Time Temp Pulse Resp B/P (MAP) Pulse Ox O2 Delivery O2 Flow Rate FiO2 02/20/25 20:15 98.1 88 16 160/94 97 Room Air 0 02/20/25 20:19 21 Physical Exam Dictation VITAL SIGNS REVIEWED GENERAL APPEARANCE: ALERT, ORIENTED X 3, MODERATE ACUTE DISTRESS, WELL DEVELOPED, NOURISHED. MORBID OBESITY HEAD AND FACE: NON-TRAUMATIC. EYES: PERRL, PINK CONJUNCTIVAS, EYELID NO TRAUMA, ANTERIOR CHAMBER WITH ARCUS SENILIS. EARS: PINNAS INTACT AND NO SIGNS OF TRAUMA OR ERYTHEMA EAR CANALS CLEAR AND NO DISCHARGE TM NO ERYTHEMA NOSE: NO DISCHARGE, NO BLEEDING. OROPHARYNX: MOUTH NORMAL, TONGUE PINK, PHARYNX CLEAR,NO ERYTHEMA, TONSILS NO EXUDATES, NO ABSCESSES NOTED, MUCOUS MEMBRANE MOIST NECK: SUPPLE, NON-TENDER, NO THYROMEGALY, NO MASSES, NO JVD, NO BRUITS BREAST:DEFERRED CHEST:NO TENDERNESS, NO CREPITUS, NO PARADOXICAL MOVEMENT, NO RETRACTIONS LUNGS:CLEAR, WELL-VENTILATED, SYMMETRIC, NO RALES, NO WHEEZING, NO RHONCHI, NO STRIDOR, GOOD BREATH SOUNDS BILATERALLY HEART: REGULAR RATE, REGULAR RHYTHM, NO MURMUR, NO GALLOPS VASCULAR: NO PERIPHERAL EDEMA, ABDOMEN: SOFT, POSITIVE BOWEL SOUNDS, NONDISTENDED, NO GUARDING, NONTENDER, NO REBOUND, NO MASSES NO HEPATOMEGALY, NO SPLENOMEGALY, NO HOUSTON'S SIGN, NO HERNIAS. RECTAL: DEFERRED GENITAL: DEFERRED NEUROLOGICAL: NORMAL SPEECH, MOTOR FUNCTION INTACT, SENSORY FUNCTION INTACT MUSCULOSKELETAL: NECK NONTENDER, FULL RANGE OF MOTION DIFFUSE LUMBAR TENDERNESS FULL RANGE OF MOTION, POSITIVE STRAIGHT LEG RAISE TO RIGHT 10 EXTREMITIES: NONTENDER, FULL RANGE OF MOTION SKIN: COLOR PINK, DRY, NO TURGOR, NO RASH, NO LACERATIONS, NO ABRASIONS, NO CONTUSIONS. LYMPHATIC: DEFERRED Results (Laboratory/Radiology) Labs Reviewed?: Yes ED Course ED Course Orders Procedure Category Date Status Time Cyclobenzaprine Hcl PHA 02/20/25 Logged (Cyclobenzaprine Hcl 20:30 Dexamethasone 4mg/Ml PHA 02/20/25 Logged 1ml Vial (Dexametha 20:30 Hydrocodone/Apap PHA 02/20/25 Logged 5/325 ([place] 5/325mg) 20:30 Ketorolac 60mg/2ml PHA 02/20/25 Logged (Toradol 60mg/2ml) 20:30 Vital Signs Date Time Temp Pulse Resp B/P (MAP) Pulse Ox O2 Delivery O2 Flow Rate FiO2 02/20/25 20:19 98.1 88 16 160/94 97 Room Air* 0 21 02/20/25 20:15 98.1 88 16 160/94 97 Room Air 0 2030/SPOKE WITH PATIENT AND MOTHER AT LENGTH THEY ARE AWARE THAT I CAN MEDICAID PATIENT FOR PAIN, THEY ARE TO START THE NAPROXEN AND METHOCARBAMOL THAT WERE PRESCRIBED THIS AFTERNOON. ADDITIONALLY PATIENT NEEDS TO BE SEEN BY HIS PRIMARY CARE DOCTOR FOR RECOMMENDED MRI AND NEUROSURGICAL FOLLOW UP NEEDED. Medical Decision Making MDM MEDICAL DISCHARGE MAKING BASED ON EMPIRIC TREATMENT FOR CHRONIC BACK PAIN WITH RIGHT SCIATICA. PATIENT DISCHARGED HOME AFTER TREATMENT PATIENT AND MOTHER MADE AWARE TO KEEP APPOINTMENT WITH DR. LEE NEXT WEEK. START METHOCARBAMOL AND NAPROXEN PRESCRIBED TODAY. DX & DISP Disposition: Discharge Departure Impression: Primary Impression: Acute exacerbation of chronic low back pain Additional Impressions: Right sided sciatica, Morbid obesity Condition: Stable Additional Instructions: FOLLOW-UP WITH PRIMARY CARE PROVIDER IN 1 TO 2 DAYS. TAKE MEDICATIONS DIRECTED HERE IN THE EMERGENCY ROOM. OKAY TO CONTINUE HOME MEDICATIONS UNLESS OTHERWISE DISCUSSED DURING YOUR VISIT IN THE EMERGENCY ROOM TODAY. RETURN TO YOUR NEAREST EMERGENCY ROOM IF SYMPTOMS WORSEN OR IF THERE IS NO IMPROVEMENT. CALL 911 IF YOU NEED IMMEDIATE ASSISTANCE. TAKE TYLENOL OR MOTRIN [id number] NEEDED AND IF NO CONTRAINDICATIONS ARE PRESENT. INCREASE ORAL HYDRATION. A WOUND CULTURE OR URINE CULTURE WAS ORDERED HERE IN THE EMERGENCY ROOM DEPARTMENT PLEASE FOLLOW-UP WITH PRIMARY CARE PROVIDER AND ADVISE THEM TO GET REPEAT PORTS FROM OUR FACILITY. IF YOU HAD ANY ARINA WRAP/SPLINTS THAT WERE APPLIED HERE, PLEASE DO NOT REMOVE THEM UNTIL YOU SEE YOUR PRIMARY CARE OR SPECIALTY. TAKE NAPROXEN AND METHOCARBAMOL DIRECTED TODAY . WARM COMPRESSES TO BACK THREE TO 4 TIMES A DAY. SEE YOUR PRIMARY CARE DOCTOR SOON POSSIBLE FOR RECOMMENDED MRI AND NEUROSURGICAL FOLLOW UP. Referrals: ALLAN LEE MD (PCP) Time of Disposition: 20:32 I have reviewed the case, and I agree with, Diagnosis and Plan MARLY JOHNSON NP Feb 20, 2025 20:33
[2025-02-20] MEDS: CYCLOBENZAPRINE HCL 10 MG TABLET PO ONE (20:45)
[2025-02-20] MEDS: HYDROcodone/APAP 5/325 1 TAB TABLET PO ONE (20:45)
[2025-02-20] MEDS: ketOROlac 60 MG VIAL (30MG/ML) IM ONE (20:46)
[2025-02-20] MEDS: dexaMETHasone SOD PHOSPHATE 4 MG/ML 1ML VIAL IM ONE (20:47)
--- NOTE | 2025-02-20 20:55 | NUR ---
dc pend med effect
[2025-02-20 21:35] VITALS: BP 165/90; PULSE 85; RESP 16; TEMP 98.1; O2SAT 97
== END 2025-02-20 21:39 | disposition home or self-care (01) ==
LOC: EDH 20:14
DX: M54.41 Lumbago with sciatica, right side (principal); E66.01 Morbid (severe) obesity due to excess calories; E11.9 Type 2 diabetes mellitus without complications; I10 Essential (primary) hypertension; Z79.52 Long term (current) use of systemic steroids; Z68.41 Body mass index [BMI] 40.0-44.9, adult
CPT/HCPCS: 99284; 96372 ×2; J1100; J1885

== ENCOUNTER → 2025-03-11 | Outpatient (CLI) | payer OTHER ==
--- NOTE | 2025-03-11 15:22 | HMCIMG ---
Exam Type: MRI OF THE LUMBAR SPINE WITHOUT GADOLINIUM Clinical Information: M54.31 Sciatica, right side Comparison: None Technique: Sagittal T1 and T2 FSE, Sagittal STIR and Sagittal proton density images were completed through the lumbosacral spine. Axial T1, T2 and proton density images were also acquired. FINDINGS: Examination shows adequate alignment of the vertebral bodies of the lumbar spine. No fractures or dislocations are identified.The bone marrow signal is normal for age. The spinal canal contents are preserved. The conus terminates at a normal level at T12 to L2. The paraspinal muscles and other tissues show no significant abnormalities. Evaluation of the lumbar spine by level: T12-L1: There is no spinal canal stenosis. No disc herniation or bulge is noted. There is no neural foraminal stenosis, impingement, or narrowing. L1-L2, L3-4, L4-5 and L5-S1: Central zone disc protrusion causing spinal canal stenosis, bilateral neural foraminal narrowing and bilateral nerve root impingement at each of these levels. L2-L3: Left subarticular zone disc extrusion with capital migration of 17 mm and significant left nerve root impingement and neural foramina narrowing left side. IMPRESSION: Multilevel disc protrusions causing bilateral nerve root impingement. Left disc extrusion at L2-3 causing significant left nerve root impingement.
== END | disposition home or self-care (01) ==
LOC: RAH 10:51
PROVIDERS: ATTEND Family Medicine
DX: M51.27 Other intervertebral disc displacement, lumbosacral region (principal); M48.07 Spinal stenosis, lumbosacral region; M54.31 Sciatica, right side
CPT/HCPCS: 72148